=== PATIENT | female | born 1980 | race Caucasian/White ===

== ENCOUNTER 2016-04-16 15:52 | Outpatient (CLI) | payer BC ==
[~2016-04-16] VITALS: Ht 170.2 cm; Wt 74.3 kg
[2016-04-16] MEDS ORDERED: PREN1TAB79 PO (16:06)
[2016-04-16 16:07] VITALS: BP 117/69; PULSE 111; RESP 20; Ht 170.2 cm; Wt 74.3 kg
[2016-04-16] MEDS ORDERED: ACETAMINOPHEN 325 MG TAB PO ONE (16:30)
[2016-04-16 16:32] LABS: BASOPHILS % 0.5 % (0.0-2.0); EOSINOPHILS # 0.2 10^3/ul (0.0-0.5); EOSINOPHILS % 2.3 % (0.0-7.0); HEMATOCRIT 28.6 % (37.0-47.0); HEMOGLOBIN 9.8 g/dl (12.0-16.0); LYMPHOCYTES % 10.6 % (15.0-51.0); MEAN CORPUSCULAR HEMOGLOBIN 30.1 pg (29.0-33.0); MEAN CORPUSCULAR HGB CONC 34.3 g/dl (32.0-37.0); MEAN CORPUSCULAR VOLUME 87.6 fl (82.0-101.0); MEAN PLATELET VOLUME 6.9 fl (7.4-10.4); MONOCYTE # 0.9 10^3/ul (0.3-0.9); MONOCYTES % 9.6 % (0.0-11.0); NEUTROPHIL # 7.4 10^3/ul (1.6-7.5); PLATELET COUNT 309 10^3/UL (140-440); RED BLOOD COUNT 3.27 10^6/ul (4.20-5.40); RED CELL DISTRIBUTION WIDTH 13.8 % (11.5-14.5); UNCORRECTED WBC 9.6 10^3/ul (4.8-10.8); WHITE BLOOD COUNT 9.6 10^3/ul (4.8-10.8)
[2016-04-16 16:45] LABS: ADD UMIC NO; URINE BILIRUBIN (Dip) NEGATIVE (NEGATIVE); URINE BLOOD (Dip) NEGATIVE (NEGATIVE); URINE COLOR LT. YELLOW (YELLOW); URINE GLUCOSE (Dip) NEGATIVE (NEGATIVE); URINE KETONES (Dip) NEGATIVE (NEGATIVE); URINE LEUKOCYTE ESTERASE (Dip) NEGATIVE (NEGATIVE); URINE NITRITE (Dip) NEGATIVE (NEGATIVE); URINE TOTAL PROTEIN (Dip) NEGATIVE (NEGATIVE); URINE UROBILINOGEN (Dip) 0.2 E.U./dL (0.1-1.0)
[2016-04-16 16:50] LABS: CONDITION 1
[2016-04-16 16:57] LABS: ALBUMIN 3.2 g/dl (3.3-4.9); POTASSIUM 3.9 mmol/L (3.5-5.1)
[2016-04-16 16:59] LABS: BILIRUBIN,INDIRECT 0.1 mg/dl (0-1.1); BILIRUBIN,TOTAL 0.1 mg/dl (0.2-1.3); CREATININE 0.54 mg/dl (0.44-1.00)
[2016-04-16 17:00] LABS: ALBUMIN/GLOBULIN RATIO 1.03; CALCIUM 8.4 mg/dl (8.4-10.2); TOTAL PROTEIN 6.3 g/dl (6.1-8.1); URIC ACID 2.8 mg/dl (3.1-7.9)
== END 2016-04-16 17:50 | disposition home or self-care (01) ==
LOC: L-D 15:52 → OBT 15:52
PROVIDERS: ATTEND Obstetrics & Gynecology
DX: O26.893 Other specified pregnancy related conditions, third trimester (principal); R51 Headache; R09.81 Nasal congestion; O09.523 Supervision of elderly multigravida, third trimester; Z3A.34 34 weeks gestation of pregnancy
CPT/HCPCS: 36415; 80053; 81003; 84560; 85025; G0463

== ENCOUNTER 2016-05-14 08:08 | Outpatient (CLI) | payer BC ==
[~2016-05-14] VITALS: Ht 170.2 cm; Wt 78.0 kg
[~2016-05-14 08:08] MED LIST: PREN1TAB79 PO
[2016-05-14 08:16] VITALS: Ht 170.2 cm; Wt 78.0 kg
[2016-05-14] MEDS ORDERED: FERR134T PO (08:18)
--- NOTE | 2016-05-14 08:57 | RADRPT ---
PROCEDURE: OB ultrasound CLINICAL INDICATION: Decreased movement TECHNIQUE: Multiple transverse and longitudinal OB images of the pelvis were obtained. The images were reviewed on a high-resolution PACS workstation. COMPARISON: None FINDINGS: A single live intrauterine is seen. The presentation is vertex. The placenta is grade II and posterior in location. The heart rate is 158 beats per minute. The amniotic fluid index is 8.5 cm. movement 2 tone 2 breathing 2 Amniotic fluid 2 IMPRESSION: Biophysical profile of 11/15. RPTAT: HPNM Physician Carmelita Date Time Electronically viewed and signed by Physician Carmelita on 05/14/2016 08:57 /
[2016-05-14] MEDS ORDERED: DEXTROSE 5%-LR 1,000 ML IV SCH (09:30)
== END 2016-05-14 11:38 | disposition home or self-care (01) ==
LOC: L-D 08:08 → OBT 08:08
PROVIDERS: ATTEND Obstetrics & Gynecology
DX: O36.8130 Decreased fetal movements, third trimester, not applicable or unspecified (principal); O09.513 Supervision of elderly primigravida, third trimester; Z3A.38 38 weeks gestation of pregnancy
CPT/HCPCS: 36415; 76818; 96360; 96361; G0463; J7121

== ENCOUNTER 2016-05-21 10:04 | Inpatient (IN) | payer BC ==
[~2016-05-21] VITALS: Ht 172.7 cm; Wt 75.9 kg
[~2016-05-21 10:04] MED LIST changes: +EPHEDrine SULFATE 50 MG/5 ML SYG ONE; +FERR134T PO; +OXYTOCIN 30 UNITS/LR 500 ML BAG IV ONE
[2016-05-21] MEDS ORDERED: CARBOPROST 250 MCG INJ IM PRN ×2 (10:30→18:30)
[2016-05-21] MEDS ORDERED: CLINDAMYCIN 900 MG/D5W (PMX) 50 ML IVPB SCH (10:30)
[2016-05-21] MEDS ORDERED: OXYTOCIN 30 UNITS/LR 500 ML IV PRN ×2 (10:30→18:30)
[2016-05-21] MEDS ORDERED: MISOPROSTOL 200 MCG TAB PR PRN ×2 (10:30→18:30)
[2016-05-21] MEDS ORDERED: METHYLERGONOVINE 0.2 MG INJ IM PRN ×2 (10:30→18:30)
[2016-05-21] MEDS: LACTATED RINGER'S 1,000 ML IV SCH ×3 (10:49→18:06)
[2016-05-21 11:14] LABS: BASOPHILS % 0.4 % (0.0-2.0); EOSINOPHILS # 0.1 10^3/ul (0.0-0.5); HEMATOCRIT 30.9 % (37.0-47.0); HEMOGLOBIN 10.4 g/dl (12.0-16.0); LYMPHOCYTES # 1.7 10^3/ul (0.8-2.9); MEAN CORPUSCULAR HEMOGLOBIN 28.8 pg (29.0-33.0); MEAN CORPUSCULAR HGB CONC 33.6 g/dl (32.0-37.0); MEAN CORPUSCULAR VOLUME 85.9 fl (82.0-101.0); MEAN PLATELET VOLUME 7.9 fl (7.4-10.4); MONOCYTE # 0.6 10^3/ul (0.3-0.9); MONOCYTES % 6.4 % (0.0-11.0); NEUTROPHIL # 6.3 10^3/ul (1.6-7.5); NEUTROPHILS % 72.2 % (39.0-77.0); PLATELET COUNT 348 10^3/UL (140-440); RED CELL DISTRIBUTION WIDTH 14.7 % (11.5-14.5); UNCORRECTED WBC 8.7 10^3/ul (4.8-10.8); WHITE BLOOD COUNT 8.7 10^3/ul (4.8-10.8)
[2016-05-21 11:15] LABS: CONDITION 1
[2016-05-21 11:16] LABS: LH ANALYZER COMMENTS 9
[2016-05-21 11:17] LABS: INR 0.9; PROTIME 12.1 Sec (12.2-14.2); PT RATIO 0.9
[2016-05-21 11:19] VITALS: Ht 172.7 cm; Wt 75.9 kg
[2016-05-21 11:20] VITALS: BP 118/69; PULSE 90; RESP 18
[2016-05-21 11:38] LABS: PARTIAL THROMBOPLASTIN TIME 23.6 Sec (25.0-35.0)
[2016-05-21] MEDS ORDERED: CEFAZOLIN 2 GM/50 ML (PMX) 50 ML IVPB ONE (12:49)
[2016-05-21] MEDS ORDERED: CEFAZOLIN 2 GM/50 ML (PMX) 50 ML IVPB SCH (13:00)
--- NOTE | 2016-05-21 13:15 | PREOPHP ---
DATE OF ADMISSION: 05/21/2016 HISTORY OF PRESENT ILLNESS: A 35-year-old female 2, para 1, estimated date of delivery 05/11 at 39 weeks' gestation is admitted for repeat section. PAST MEDICAL HISTORY: Unremarkable. PAST SURGICAL HISTORY: section. ALLERGIES: PENICILLIN. FAMILY HISTORY: Hypertension. PHYSICAL EXAMINATION: VITAL SIGNS: The patient is afebrile. Vital signs stable. HEAD, NECK AND CHEST: Within normal limits. ABDOMEN: Soft, nontender and gravid. EXTREMITIES: Within normal limits. NEUROLOGIC: Within normal limits. IMPRESSION: at 39 weeks with previous section. The patient does not desire to h ave a trial of labor after . PLAN: Delivery by repeat section. Risks, benefits and alternatives of the procedure were explained to the patient. The patient said she understood and gave informed consent for the procedu re. Dictated By: KATELYN MIR/CARL Conf#: [id number] DID#: [id number]
[2016-05-21] MEDS ORDERED: morphine SULFATE/PF (10 MG/10 ML) INJ ONE (13:29)
[2016-05-21] MEDS ORDERED: PHENYLephrine (100 MCG/ML) 5ML SYG ONE ×2 (13:30→13:50)
[2016-05-21] MEDS ORDERED: ONDANSETRON 4 MG INJ ONE ×2 (13:44→13:53)
[2016-05-21] MEDS ORDERED: FENTAnyl 50 MCG/ML VIAL ONE ×3 (14:08→14:15)
[2016-05-21] MEDS ORDERED: HYDROmorphONE (0.2 MG/ML) 10ML SYG IV PRN ×3 (14:30)
[2016-05-21] MEDS ORDERED: DIPHENHYDRAMINE 50 MG INJ IV PRN ×2 (14:30)
[2016-05-21] MEDS ORDERED: HYDROmorphONE 1 MG/ML SYG IV PRN (14:30)
[2016-05-21] MEDS ORDERED: KETOROLAC 30 MG INJ IV ONE (14:30)
[2016-05-21] MEDS ORDERED: KETOROLAC 15 MG INJ IV ONE (14:30)
[2016-05-21] MEDS ORDERED: FENTAnyl 50 MCG/ML VIAL IV PRN ×2 (14:30)
[2016-05-21] MEDS ORDERED: NALOXONE (0.4 MG/ML) INJ IV PRN (14:30)
[2016-05-21] MEDS ORDERED: MEPERIDINE 25 MG INJ IV PRN (14:30)
[2016-05-21] MEDS ORDERED: ONDANSETRON 4 MG INJ IV PRN ×2 (14:30)
[2016-05-21] MEDS: OXYTOCIN 30 UNITS/LR 500 ML IV SCH ×4 (15:08→22:38)
[2016-05-21 17:45] VITALS: BP 116/59; PULSE 80; RESP 18
[2016-05-21 18:15] VITALS: BP 107/66; PULSE 83; RESP 18
[2016-05-21] MEDS ORDERED: VITAMIN A & D 5 GM OINT PACKET TOP ONE (18:21)
[2016-05-21] MEDS ORDERED: LANOLIN 7 GM TUBE TOP PRN (18:30)
[2016-05-21] MEDS ORDERED: OXYCODONE/ACETAMINOPHEN (5/325) TAB PO PRN (18:30)
[2016-05-21] MEDS: HYDROmorphONE 1 MG/ML SYG IV PRN ×2 (18:59→23:08)
[2016-05-21 20:00] VITALS: BP 108/62; PULSE 77; RESP 18
[2016-05-21] MEDS: SENNA/DOCUSATE NA (8.6MG/50MG) TAB PO SCH (21:00)
[2016-05-21] MEDS: IBUPROFEN 800 MG TAB PO SCH (21:44)
[2016-05-22] VITALS: BP 105/81; PULSE 81; RESP 18
[2016-05-22] MEDS: LACTATED RINGER'S 1,000 ML IV SCH ×3 (03:00→11:08)
[2016-05-22 04:30] VITALS: BP 102/59; PULSE 84; RESP 18
[2016-05-22] MEDS: KETOROLAC 30 MG INJ IV PRN ×2 (04:49→12:52)
[2016-05-22] MEDS: IBUPROFEN 800 MG TAB PO SCH ×3 (06:00→21:50)
[2016-05-22 07:27] LABS: EOSINOPHILS % 0.3 % (0.0-7.0); HEMATOCRIT 25.5 % (37.0-47.0); HEMOGLOBIN 8.7 g/dl (12.0-16.0); LYMPHOCYTES # 1.2 10^3/ul (0.8-2.9); LYMPHOCYTES % 8.8 % (15.0-51.0); MEAN CORPUSCULAR HEMOGLOBIN 29.4 pg (29.0-33.0); MEAN CORPUSCULAR HGB CONC 34.2 g/dl (32.0-37.0); MEAN PLATELET VOLUME 7.8 fl (7.4-10.4); MONOCYTE # 0.5 10^3/ul (0.3-0.9); MONOCYTES % 3.8 % (0.0-11.0); NEUTROPHIL # 11.9 10^3/ul (1.6-7.5); NEUTROPHILS % 87.1 % (39.0-77.0); PLATELET COUNT 266 10^3/UL (140-440); RED BLOOD COUNT 2.97 10^6/ul (4.20-5.40); RED CELL DISTRIBUTION WIDTH 14.4 % (11.5-14.5); UNCORRECTED WBC 13.6 10^3/ul (4.8-10.8); WHITE BLOOD COUNT 13.6 10^3/ul (4.8-10.8)
[2016-05-22 07:38] LABS: CONDITION 1
[2016-05-22 08:00] VITALS: BP 102/64; PULSE 82; RESP 17
[2016-05-22] MEDS: SENNA/DOCUSATE NA (8.6MG/50MG) TAB PO SCH ×2 (09:00→20:36)
--- NOTE | 2016-05-22 09:18 | OPR ---
DATE OF OPERATION: 05/21/2016 PREOPERATIVE DIAGNOSES: at 39 weeks with previous section. POSTOPERATIVE DIAGNOSES: 1. at 39 weeks with previous section. 2. Omental adhesions. OPERATION: Repeat low transverse section and lysis of adhesions SURGEON: Katelyn Dunn MD INSTRUCTIONAL RESOURCE TEACHER: Pillo Barber MD ANESTHESIA: Spinal. ANESTHESIOLOGIST: Gold Rodas MD PROCEDURE: The patient was taken to the operating room and placed on the operating table. After meade ccessful spinal anesthesia was given, the patient was placed in supine position. The area was prepa red and draped in the usual sterile fashion. Spinal anesthesia was tested and was satisfactory. Us ing a scalpel, Pfannenstiel incision was made about 2 fingerbreadths above the symphysis pubis. Inc ision was carried down to the fascia. The fascia was incised and extended bilaterally with Fields sci ssors. Two Kochers were used to separate the fascia from the muscle. The muscle was dissected in m idline down to peritoneum. The peritoneum was secured with the Kellys and incised with Metzenbaum s cissors. Upon entering the peritoneal cavity, there were omental adhesions noted. Sharp lysis of a dhesion was performed with the Bovie. Using a scalpel, a small transverse incision was made in the dorsum of the uterus. Upon entering the uterine cavity, bandage scissors were inserted to extend th e incision bilaterally, curved up. Baby was delivered from cephalic presentation. After suctioning clear of amniotic fluid, the baby was handed off to the team in attendance. Apgars were 9 and 9. The placenta was delivered without difficulty. The uterus was closed with #1 Monocryl cont inuous locked. After assuring hemostasis, both ovaries and tubes were inspected, all looked normal. The peritoneal cavity was irrigated with warm saline. The peritoneum was closed with 2-0 Vicryl c ontinuous. The fascia was closed with #1 Vicryl continuous in 2 segments. The skin was closed with Insorb. COUNTS: Lap, instrument, and needle counts were correct x2. ESTIMATED BLOOD LOSS: 600 mL Dictated By: KATELYN DUNN MD GD/NTS Conf#: [id number] DID#: [id number]
[2016-05-22] MEDS: HYDROmorphONE 1 MG/ML SYG IV PRN (09:58)
[2016-05-22 12:00] VITALS: BP 107/70; PULSE 107; RESP 18
[2016-05-22 16:15] VITALS: BP 106/74; PULSE 86; RESP 18
--- NOTE | 2016-05-22 16:51 | QN ---
Documentation Comment POD#1 is stable afebrile tolerates diet No Vb +Flatus+Voids VS stable Gen NAD Abd soft NT ND Dressing to be removed Genitalia No blood at perinium --->Discharge plan tomorrow Ambulation AGUSTÍN HERNANDEZ M.D. May 22, 2016 16:51
[2016-05-22] MEDS: OXYCODONE/ACETAMINOPHEN (5/325) TAB PO PRN ×2 (18:36→23:09)
[2016-05-22 19:30] VITALS: BP 113/71; PULSE 83; RESP 18
[2016-05-23] MEDS: LACTATED RINGER'S 1,000 ML IV SCH ×3 (00:15→15:04)
[2016-05-23 04:00] VITALS: BP 120/67; PULSE 81; RESP 19
[2016-05-23] MEDS: IBUPROFEN 800 MG TAB PO SCH ×3 (06:17→21:48)
[2016-05-23 08:30] VITALS: BP 118/60; PULSE 84; RESP 18
[2016-05-23] MEDS: SENNA/DOCUSATE NA (8.6MG/50MG) TAB PO SCH ×2 (09:00→21:00)
[2016-05-23] MEDS: OXYCODONE/ACETAMINOPHEN (5/325) TAB PO PRN ×3 (10:42→21:48)
--- NOTE | 2016-05-23 19:36 | QN ---
Documentation Comment No complaint Afebrile VSS Abdomen soft POD #2 Stable Continue with present care. KATELYN CHANCE MD May 23, 2016 19:35
[2016-05-23 19:50] VITALS: BP 105/58; PULSE 82; RESP 18
[2016-05-23] MEDS: FERROUS SULFATE (EC) 325 MG TAB PO SCH (21:48)
[2016-05-24] MEDS: LACTATED RINGER'S 1,000 ML IV SCH ×2 (02:06→09:46)
[2016-05-24 04:30] VITALS: BP 115/71; PULSE 77; RESP 18
[2016-05-24] MEDS: IBUPROFEN 800 MG TAB PO SCH ×2 (05:10→13:58)
[2016-05-24] MEDS: OXYCODONE/ACETAMINOPHEN (5/325) TAB PO PRN ×3 (05:11→16:03)
[2016-05-24 08:00] VITALS: BP 115/74; PULSE 74; RESP 17
[2016-05-24] MEDS ORDERED: DIPHTH/TET/ACEL PERTUSS (ADULT) 0.5 ML VIAL IM* ONE (09:00)
[2016-05-24] MEDS: FERROUS SULFATE (EC) 325 MG TAB PO SCH ×3 (09:00→13:58)
[2016-05-24] MEDS: SENNA/DOCUSATE NA (8.6MG/50MG) TAB PO SCH (09:00)
[2016-05-24 16:30] VITALS: BP 105/69; PULSE 79; RESP 16
--- NOTE | 2016-05-24 19:06 | DS ---
DATE OF ADMISSION: 05/21/2016 DATE OF DISCHARGE: 05/24/2016 ADMITTING DIAGNOSIS: at term with previous section. HISTORY: A 35-year-old female, 2, para 1 at time of admission, para 2 at time of discharge, with term was admitted for repeat section. On 05/21/2016, after obtaining [facility] consent, the patient underwent a repeat low transverse section. The patient had omenta l adhesions. The patient had lysis of adhesions. The patient's operation was uncomplicated. Posto peratively, the patient was given a clear liquid diet which was advanced to regular diet, which she tolerated well. The patient is discharged on postop day #3 after having had adequate bladder and lani wel function. CONDITION ON DISCHARGE: Stable. DISCHARGE INSTRUCTIONS: DIET: Regular. ACTIVITIES: Pelvic rest and no strenuous activity. MEDICATIONS: 1. Motrin and Percocet as needed for pain. 2. Continue with vitamins, ferrous sulfate. FOLLOWUP: In office in 1 week. FINAL DIAGNOSES: 1. Term , delivered by section. 2. Previous section. 3. Omental adhesions. 4. Mother with single liveborn. Dictated By: KATELYN MIR/CARL Conf#: [id number] DID#: [id number]
== END 2016-05-24 19:19 | disposition home or self-care (01) | DRG 766 ==
LOC: L-D 10:04 → PP1 17:59
PROVIDERS: ADMIT Obstetrics & Gynecology; ATTEND Obstetrics & Gynecology
PROC: 10D00Z1 Extraction of Products of Conception, Low, Open Approach (ICD-10-PCS; principal; 2016-05-21 12:30)
DX: O34.211 Maternal care for low transverse scar from previous cesarean delivery (principal); K66.0 Peritoneal adhesions (postprocedural) (postinfection); O99.62 Diseases of the digestive system complicating childbirth; Z3A.39 39 weeks gestation of pregnancy; Z37.0 Single live birth
CPT/HCPCS: 85025; 85610; 85730; 86592; 86850; 86900; 86901; 87340; 90715; 94760; 99464; J0690; J1170; J1885; J2274; J2370; J2405; J2590; J3010; J7120